=== PATIENT | female | born 1985 | race Two or more races ===

== ENCOUNTER 2016-09-18 10:31 | Emergency (ER) | payer MEDICAID ==
[2016-09-18] MEDS ORDERED: PREDNISONE 20 MG TABLET PO ONE (11:39)
[2016-09-18] MEDS ORDERED: IBUPROFEN 800 MG TABLET PO ONE (11:39)
[2016-09-18] MEDS ORDERED: CYCLOBENZAPRINE HCL 10 MG TABLET PO ONE (11:39)
--- NOTE | 2016-09-18 11:40 | ER Document Report ---
ED General Pain - General Chief Complaint: Low Back Pain Stated Complaint: BACK PAIN Time Seen by Provider: 09/18/16 11:11 Mode of Arrival: Ambulatory Information source: Patient Notes: Patient is a 30-year-old female who presents to the ER today for right lower back pain radiating down the right leg to the calf 1 day. Patient states that she has some numbness and tingling down the right leg to the calf as well. 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 TRAVEL OUTSIDE OF THE [place] IN LAST 30 DAYS: No - Related Data Allergies/Adverse Reactions: No Known Allergies Allergy (Verified 09/18/16 11:11) Past Medical History - General Information source: Patient - Social History Smoking Status: Never Smoker Frequency of alcohol use: Rare Drug Abuse: None Family History: Reviewed & Not Pertinent - Past Medical History Cardiac Medical History: Denies: Hx Coronary Artery Disease, Hx Heart Attack, Hx Hypertension Pulmonary Medical History: Denies: Hx Asthma, Hx Bronchitis, Hx COPD, Hx Pneumonia Neurological Medical History: Denies: Hx Cerebrovascular Accident, Hx Seizures Endocrine Medical History: Denies: Hx Hyperthyroidism, Hx Hypothyroidism Renal/ Medical History: Denies: Hx Peritoneal Dialysis Musculoskeltal Medical History: Denies Hx Arthritis Past Surgical History: Reports: Hx Section - X2 - Immunizations Hx Diphtheria, Pertussis, Tetanus Vaccination: Yes - 2012 Review of Systems - Review of Systems Constitutional: No symptoms reported EENT: No symptoms reported Cardiovascular: No symptoms reported Respiratory: No symptoms reported Gastrointestinal: No symptoms reported Genitourinary: No symptoms reported Female Genitourinary: No symptoms reported Musculoskeletal: See HPI Skin: No symptoms reported Hematologic/Lymphatic: No symptoms reported Neurological/Psychological: No symptoms reported Physical Exam - Vital signs Vitals: Temp Pulse Resp BP Pulse Ox 98.8 F 65 18 136/85 H 99 09/18/16 10:31 09/18/16 10:31 09/18/16 10:31 09/18/16 10:31 09/18/16 10:31 - Notes Notes: PHYSICAL EXAMINATION: GENERAL: appears uncomfortable, but in no acute distress. HEAD: Atraumatic, normocephalic. EYES: Pupils equal round and reactive to light, extraocular movements intact, sclera anicteric, conjunctiva are normal. ENT: ear canals without erythema or foreign body, TMs pearly wood with good bony landmarks, nares patent, oropharynx clear without exudates. Moist mucous membranes. NECK: Normal range of motion, supple without lymphadenopathy LUNGS: CTAB and equal. No wheezes rales or rhonchi. HEART: Regular rate and rhythm without murmurs ABDOMEN: Soft, no tenderness. No guarding, no rebound BACK: right sided SI joint tenderness, no vertebral tenderness, decreased ROM secondary to pain GI/: no CVA tenderness EXTREMITIES: no calf tenderness, Normal range of motion, no pitting edema. No cyanosis. NEUROLOGICAL: Cranial nerves grossly intact. Normal sensory/motor exams. PSYCH: Normal mood, normal affect. SKIN: Warm, Dry, normal turgor, no rashes or lesions noted Course - Vital Signs Vital signs: Temp Pulse Resp BP Pulse Ox 98.7 F 62 16 126/80 H 99 09/18/16 12:46 09/18/16 12:46 09/18/16 12:46 09/18/16 12:46 09/18/16 12:46 Discharge - Discharge Clinical Impression: Sciatica, right side Condition: Stable Disposition: HOME, SELF-CARE Additional Instructions: Follow-up with your primary care provider, take medicine as prescribed. Return with worsening symptoms. Prescriptions: Cyclobenzaprine HCl [Flexeril 10 mg Tablet] 10 mg PO TIDP PRN #15 tab PRN Reason: Ibuprofen [Motrin 800 mg Tablet] 800 mg PO Q8H PRN #30 tab PRN Reason: Prednisone 60 mg PO DAILY #15 tablet
[2016-09-18 12:23] LABS: APPEARANCE,URINE CLEAR; BILIRUBIN,URINE NEGATIVE (NEGATIVE); GLUCOSE, URINE NEGATIVE (NEGATIVE); KETONES,URINE NEGATIVE (NEGATIVE); LEUKOCYTE ESTERASE,URINE NEGATIVE (NEGATIVE); NITRITE,URINE NEGATIVE (NEGATIVE); PROTEIN,URINE NEGATIVE (NEGATIVE); URINE SPECIFIC GRAVITY 1.018; UROBILINOGEN,URINE NEGATIVE mg/dL (<2.0)
[2016-09-18 12:47] VITALS: BP 126/80
== END 2016-09-18 12:47 | disposition home or self-care (01) ==
LOC: ER 10:31
DX: M54.41 Lumbago with sciatica, right side (principal); M54.5 Low back pain; R10.31 Right lower quadrant pain
CPT/HCPCS: 99283; 81001; J3490 ×2; J7512

== ENCOUNTER → 2017-11-15 | Outpatient (CLI) | payer MEDICAID ==
--- NOTE | 2017-11-15 15:03 | RADIOLOGY REPORT (SQ) ---
EXAM DESCRIPTION: LUMBAR SPINE COMPLETE COMPLETED DATE/TIME: 11/15/2017 2:52 pm REASON FOR STUDY: LOW BACK PAIN M54.11 RADICULOPATHY, [id number] REGION COMPARISON: None. NUMBER OF VIEWS: Five views including obliques. TECHNIQUE: AP, lateral, oblique, and sacral radiographic images acquired of the lumbar spine. LIMITATIONS: None. FINDINGS: MINERALIZATION: Normal. SEGMENTATION: Normal. No transitional anatomy. ALIGNMENT: Normal. VERTEBRAE: Maintained height. No fracture or worrisome bone lesion. DISCS: Preserved height. No significant osteophytes or end plate irregularity. POSTERIOR ELEMENTS: Pedicles and facets are intact. No pars defect or posterior arch defects. HARDWARE: None in the spine. PARASPINAL SOFT TISSUES: Normal. PELVIS: Not in the field of view. Mild bilateral SI joint sclerosis and vacuum phenomenon OTHER: No other significant finding. IMPRESSION: Bilateral sacroiliac joint sclerosis and vacuum phenomenon TECHNICAL DOCUMENTATION: JOB ID: [id number] [employer]- All Rights Reserved Reading location - IP/workstation name: [email or web address]
== END ==
LOC: OD 14:27
PROVIDERS: ATTEND Family Medicine
DX: M54.41 Lumbago with sciatica, right side (principal)
CPT/HCPCS: 72110

== ENCOUNTER → 2018-09-21 | Outpatient (CLI) | payer SELFPAY ==
--- NOTE | 2018-09-21 13:50 | RADIOLOGY REPORT (SQ) ---
EXAM DESCRIPTION: U/S [id number] TRNABD 1GES W/ODOP COMPLETED DATE/TIME: 09/21/2018 1:25 pm REASON FOR STUDY: Z34.81 ENCOUNTER FOR SUPRVSN OF NORMAL , FIRST TRIMESTER Z34.81 ENCOUNTE R FOR SUPRVSN OF NORMAL , FIRST TRIM COMPARISON: None. TECHNIQUE: Transabdominal static and realtime grayscale images acquired of the pelvis. Additional se lected spectral and color Doppler images recorded. All images stored on PACs. bHCG: Not applicable. CLINICAL DATES: EFREN: 05/02/2019 EGA semi: 8 weeks 1 day LIMITATIONS: None. FINDINGS: FETUS: Single Living intrauterine . ULTRASOUND EGA: 12 weeks 5 days ULTRASOUND EFREN: 03/31/2019 EFW: Not applicable less than 20 weeks. CRL: 6.2 cm FHR: 157 beats per minute. SURVEY: No visualized anomalies. AMNIOTIC FLUID: Adequate amount. PLACENTA: Posterior placenta. SUBCHORIONIC BLEED: No. SIZE OF BLEED: Not applicable. UTERUS: No masses. No anomalies. CERVICAL LENGTH: Not obtained. Closed. RIGHT ADNEXA: Not visualized. LEFT ADNEXA: Not visualized. FREE FLUID: None. OTHER: No other significant finding. IMPRESSION: LIVING INTRAUTERINE . EGA: 12 weeks 5 days Trimester of : First trimester - 0 to 13 weeks. TECHNICAL DOCUMENTATION: JOB ID: [id number] [employer]- All Rights Reserved rev Reading location - IP/workstation name: [email or web address]
== END ==
LOC: RAD 12:46
PROVIDERS: ATTEND Midwife
DX: Z34.81 Encounter for supervision of other normal pregnancy, first trimester (principal)
CPT/HCPCS: 76801

== ENCOUNTER 2018-10-17 15:05 | Emergency (ER) | payer MEDICAID ==
[2018-10-17] MEDS ORDERED: ACETAMINOPHEN 325 MG TABLET PO ONE (15:32)
--- NOTE | 2018-10-17 15:32 | ER Document Report ---
ED Medical Screen (RME) - General Chief Complaint: Fall Stated Complaint: FALL/ABDOMINAL CRAMPING Time Seen by Provider: 10/17/18 15:29 Primary Care Provider: TONIO MANCIA CNM [Primary Care Provider] - Follow up as needed Mode of Arrival: Ambulatory Information source: Patient Notes: 32-year-old female presented to ED for lower abdominal pain and cramping after she fell around 11:00 this morning. She is 17 weeks . 4 para 3. She states she goes to the health department at this time. She states her last OB ultrasound was September 16. She states she is due in March 292019. She is alert oriented respirations regular and unlabored speaking in full sentences. Patient does deny vaginal bleeding at this time. TRAVEL OUTSIDE OF THE [place] IN LAST 30 DAYS: No - Related Data Allergies/Adverse Reactions: No Known Allergies Allergy (Verified 10/17/18 15:07) Past Medical History - Social History Frequency of alcohol use: None Drug Abuse: None - Past Medical History Cardiac Medical History: Denies: Hx Coronary Artery Disease, Hx Heart Attack, Hx Hypertension Pulmonary Medical History: Denies: Hx Asthma, Hx Bronchitis, Hx COPD, Hx Pneumonia Neurological Medical History: Denies: Hx Cerebrovascular Accident, Hx Seizures Endocrine Medical History: Denies: Hx Hyperthyroidism, Hx Hypothyroidism Renal/ Medical History: Denies: Hx Peritoneal Dialysis Musculoskeltal Medical History: Denies Hx Arthritis Past Surgical History: Reports: Hx Section - X2 - Immunizations Hx Diphtheria, Pertussis, Tetanus Vaccination: Yes - 2012 Physical Exam - Vital signs Vitals: Temp Pulse Resp BP Pulse Ox 98.7 F 68 20 122/65 97 10/17/18 15:10 10/17/18 15:10 10/17/18 15:10 10/17/18 15:10 10/17/18 15:10 Course - Vital Signs Vital signs: Temp Pulse Resp BP Pulse Ox 98.7 F 68 20 122/65 97 10/17/18 15:10 10/17/18 15:10 10/17/18 15:10 10/17/18 15:10 10/17/18 15:10 Doctor's Discharge - Discharge Referrals: TONIO MANCIA CNM [Primary Care Provider] - Follow up as needed
[2018-10-17 16:09] LABS: ABSOLUTE EOSINOPHILS # (AUTO) 0.1 10^3/uL (0.0-0.6); ABSOLUTE LYMPHOCYTES (AUTO) 1.9 10^3/uL (0.5-4.7); ABSOLUTE MONOCYTES (AUTO) 0.6 10^3/uL (0.1-1.4); ABSOLUTE NEUT (AUTO) 5.7 10^3/uL (1.7-8.2); BASOPHILS % (AUTO) 0.4 % (0-2); EOSINOPHILS % (AUTO) 1.3 % (0-6); HEMATOCRIT 36.6 % (36.0-47.0); HEMOGLOBIN 12.8 g/dL (12.0-15.5); LYMPHOCYTES % (AUTO) 22.6 % (13-45); MEAN CORPUSCULAR HEMOGLOBIN 31.6 pg (27.0-33.4); MEAN CORPUSCULAR HGB CONC 34.9 g/dL (32.0-36.0); MEAN CORPUSCULAR VOLUME 91 fl (80-97); MONOCYTES % (AUTO) 7.2 % (3-13); PLATELET COUNT 207 10^3/uL (150-450); RED BLOOD COUNT 4.04 10^6/uL (3.72-5.28); RED CELL DISTRIBUTION WIDTH 14.2 % (11.5-14.0); SEGMENTED NEUTROPHILS % (AUTO) 68.5 % (42-78); TOTAL CELLS COUNTED % (AUTO) 100 %; WHITE BLOOD COUNT 8.4 10^3/uL (4.0-10.5)
[2018-10-17 16:21] LABS: APPEARANCE,URINE SLIGHTLY-CLOUDY; BILIRUBIN,URINE NEGATIVE (NEGATIVE); COLOR,URINE YELLOW; GLUCOSE, URINE NEGATIVE (NEGATIVE); KETONES,URINE TRACE mg/dL (NEGATIVE); LEUKOCYTE ESTERASE,URINE NEGATIVE (NEGATIVE); NITRITE,URINE POSITIVE (NEGATIVE); PROTEIN,URINE NEGATIVE (NEGATIVE); URINE SPECIFIC GRAVITY 1.014; UROBILINOGEN,URINE NEGATIVE mg/dL (<2.0)
[2018-10-17 16:31] LABS: ALBUMIN 4.1 g/dL (3.5-5.0); ALKALINE PHOSPHATASE 79 U/L (38-126); ANION GAP 12 (5-19); ASPARTATE AMINO TRANSFERASE 19 U/L (14-36); BILIRUBIN,DIRECT 0.1 mg/dL (0.0-0.4); BILIRUBIN,TOTAL 0.5 mg/dL (0.2-1.3); BLOOD UREA NITROGEN 3 mg/dL (7-20); CALCIUM 9.2 mg/dL (8.4-10.2); CARBON DIOXIDE 24 mmol/L (22-30); CHLORIDE 100 mmol/L (98-107); GLUCOSE 92 mg/dL (75-110); POTASSIUM 3.5 mmol/L (3.6-5.0); TOTAL PROTEIN 7.2 g/dL (6.3-8.2)
--- NOTE | 2018-10-17 16:56 | RADIOLOGY REPORT (SQ) ---
EXAM DESCRIPTION: U/S OB 14+ TRNABD 1GES W/O DOP COMPLETED DATE/TIME: 10/17/2018 4:24 pm REASON FOR STUDY: fall pelvic/abdominal cramping COMPARISON: None. TECHNIQUE: Static and Dynamic grayscale imaging performed of gravid uterus using transabdominal appr oac. Additional selected color Doppler and spectral images recorded. All stored on PACS. LIMITATIONS: None. FINDINGS: FETUSES SEEN:1 EGA: 16 weeks 3 days Calculated using BPD,FL,HC,AC documented on images. No discrepancy with clinica l dates. EFREN: 03/31/2019 EFW: 150+/- 22 grams PERCENTILE: Not applicable. LVP: 4.2 cm. PLACENTA: Posterior grade 1. PRESENTATION: Cephalic. ANATOMY: HEART RATE: 157 beats per minute. FOUR CHAMBER HEART: Not confirmed. THREE VESSEL CORD: Not confirmed. CORD INSERTION: Not seen. KIDNEYS AND BLADDER: Kidneys not seen. Bladder is normal. STOMACH: Visualized. Appears normal. SPINE: Normal as visualized. BRAIN AND LATERAL VENTRICLES: Not well seen. OTHER: No other significant finding. MATERNAL ADNEXA: Maternal ovaries not visualized. CERVICAL LENGTH: 2.3 cm. Closed. OTHER: No other significant finding. IMPRESSION: LIVING INTRAUTERINE . ESTIMATED GESTATIONAL AGE 16 weeks 3 days. No visualized anomalies. Very limited anatomical evaluation. Trimester of : Second trimester - 13 weeks 1 day to 27 weeks 6 days. TECHNICAL DOCUMENTATION: JOB ID: [id number] [email or web address]- All Rights Reserved Reading location - IP/workstation name: [email or web address]
--- NOTE | 2018-10-17 19:09 | ER Document Report ---
ED Fall - General Chief Complaint: Fall Stated Complaint: FALL/ABDOMINAL CRAMPING Time Seen by Provider: 10/17/18 15:29 Primary Care Provider: TONIO MANCIA CNM [NO LOCAL MD] - Follow up as needed Mode of Arrival: Ambulatory Information source: Patient Notes: Patient is a 32-year-old female presents to the emergency department with a chief complaint of fall. Patient states around 11 AM she was stepping up to get into an elevated truck when she did the handle she grabbed onto broke. Patient said she fell onto the concrete onto her buttocks. Patient reports she is 17 weeks . Patient states she has not had any vaginal bleeding or discharge. Patient does report pelvic intermittent cramping that did develop after the fall. Patient reports she is currently on oral antibiotic for a urinary tract infection that was given by the health department. Patient states she has taken Tylenol for her discomfort. TRAVEL OUTSIDE OF THE [place] IN LAST 30 DAYS: No - Related data Allergies/Adverse Reactions: No Known Allergies Allergy (Verified 10/17/18 15:07) Past Medical History - General Information source: Patient - Social History Smoking Status: Never Smoker Frequency of alcohol use: None Drug Abuse: None Lives with: Spouse/Significant other Family History: Reviewed & Not Pertinent Patient has suicidal ideation: No Patient has homicidal ideation: No - Past Medical History Cardiac Medical History: Reports: None Denies: Hx Coronary Artery Disease, Hx Heart Attack, Hx Hypertension Pulmonary Medical History: Reports: None Denies: Hx Asthma, Hx Bronchitis, Hx COPD, Hx Pneumonia EENT Medical History: Reports: None Neurological Medical History: Reports: None. Denies: Hx Cerebrovascular Accident, Hx Seizures Endocrine Medical History: Reports: None. Denies: Hx Hyperthyroidism, Hx H ypothyroidism Renal/ Medical History: Reports: None. Denies: Hx Peritoneal Dialysis Malignancy Medical History: Reports: None GI Medical History: Reports: None Musculoskeletal Medical History: Reports None, Denies Hx Arthritis Skin Medical History: Reports None Psychiatric Medical History: Reports: None Traumatic Medical History: Reports: None Infectious Medical History: Reports: None Past Surgical History: Reports: Hx Section - X2 - Immunizations Hx Diphtheria, Pertussis, Tetanus Vaccination: Yes - 2013 Review of Systems - Review of Systems Constitutional: No symptoms reported EENT: No symptoms reported Cardiovascular: No symptoms reported Respiratory: No symptoms reported Gastrointestinal: See HPI Genitourinary: No symptoms reported Female Genitourinary: No symptoms reported Musculoskeletal: See HPI Skin: No symptoms reported Hematologic/Lymphatic: No symptoms reported Neurological/Psychological: No symptoms reported Physical Exam - Vital signs Vitals: Temp Pulse Resp BP Pulse Ox 98.7 F 68 20 122/65 97 10/17/18 15:10 10/17/18 15:10 10/17/18 15:10 10/17/18 15:10 10/17/18 15:10 Interpretation: Normal - Notes Notes: GENERAL: Well-appearing, well-nourished and in no acute distress. HEAD: Atraumatic, normocephalic. EYES: Pupils equal round and reactive to light, extraocular movements intact, sclera anicteric, conjunctiva are normal. ENT: Nares patent, oropharynx clear without exudates. Moist mucous membranes. NECK: Normal range of motion, supple without lymphadenopathy or JVD. LUNGS: Breath sounds clear to auscultation bilaterally and equal. No wheezes rales or rhonchi. HEART: Regular rate and rhythm without murmurs, rubs or gallops. ABDOMEN: Soft, nontender, normoactive bowel sounds. No guarding, no rebound. No masses appreciated. BACK: No cervical, thoracic, lumbar midline tenderness. No saddle anesthesia, normal distal neurovascular exam. No ecchymosis noted to the buttocks. No tenderness to the coccyx. GENITOURINARY: Deferred. EXTREMITIES: Normal range of motion, no pitting or edema. No clubbing or cyano sis. NEUROLOGICAL: Cranial nerves II through XII grossly intact. Normal speech, normal gait. PSYCH: Normal mood, normal affect. SKIN: Warm, Dry, normal turgor, no rashes or lesions noted. Course - Re-evaluation Re-evalutation: 10/17/18 19:20 Patient's lab work was unremarkable. Patient's ultrasound was normal. Patient continues to deny vaginal bleeding or discharge since the incident at 11 AM. Patient does report intermittent lower pelvic cramping. Patient did take Tylenol for this. I did order a urine culture. Patient states she is currently being treated with oral antibiotics for a urinary tract infection. Patient placed on strict return precautions. - Vital Signs Vital signs: Temp Pulse Resp BP Pulse Ox 98.7 F 68 20 122/65 97 10/17/18 15:10 10/17/18 15:10 10/17/18 15:10 10/17/18 15:10 10/17/18 15:10 - Laboratory Result Diagrams: 10/17/18 15:53 10/17/18 15:53 Laboratory results interpreted by me: 10/17/18 10/17/18 10/17/18 15:53 15:53 15:53 RDW 14.2 H Sodium 135.5 L Potassium 3.5 L BUN 3 L Creatinine 0.34 L Urine Ketones TRACE H Urine Nitrite POSITIVE H - Diagnostic Test Radiology reviewed: Reports reviewed Radiology results interpreted by me: 10/17/18 19:06 Obstetrics Ultrasound 10/17/18 15:32 IMPRESSION: LIVING INTRAUTERINE . ESTIMATED GESTATIONAL AGE 16 weeks 3 days. No visualized anomalies. Very limited anatomical evaluation. Trimester of : Second trimester - 13 weeks 1 day to 27 weeks 6 days. Discharge - Discharge Clinical Impression: Buttock pain, Pelvic pain, Second trimester Fall Qualifiers: Encounter type: initial encounter Qualified Code(s): W19.XXXA - Unspecified fall, initial encounter Urinary tract infection Qualifiers: Urinary tract infection type: site unspecified Hematuria presence: without hematuria Qualified Code(s): N39.0 - Urinary tract infection, site not specified Condition: Stable Disposition: HOME, SELF-CARE Additional Instructions: Today you were seen in the emergency department after a fall. We did obtain an ultrasound and your baby is measuring 16 weeks and 3 days. The ultrasound did not show any acute abnormality. He also reported having pelvic pain. Urinalysis did show a urinary tract infection. Please continue take the oral antibiotics at the health department prescribed and follow-up with him on the as previously scheduled. Please return to the emergency department if you develop severe abdominal pain, vaginal bleeding, vaginal discharge or any other concerning signs or symptoms. Do expect to be sore over the next few days. Take Tylenol as needed for pain. He may also use cool compresses over the sites that are bothering you such as the buttocks. Urinary Tract Infection Your evaluation indicates that you have a urinary tract infection. This is due to germs growing in the bladder. This is a common problem. This infection usually responds quickly to antibiotics. Your antibiotic should be taken exactly as prescribed. Drink plenty of fluids -- three to four quarts a day. Occasionally, a bladder anesthetic will be prescribed to help stop the feeling of urgency until the antibiotic has a chance to clear the infection. This may cause your urine to be dark orange. Certain urine infections require a culture. If the doctor obtained a culture, the results will be back in two days. You should call to see if a change in treatment is needed. A repeat urinalysis after you finish treatment is often recommended. The physician will let you know if further testing is required. Call the doctor if you develop fever, chills, flank pain, inability to urinate, or blood in the urine. Forms: Return to Work Referrals: TONIO MANCIA CNM [NO LOCAL MD] - Follow up as needed
[2018-10-17 19:30] VITALS: BP 121/61
== END 2018-10-17 19:40 | disposition home or self-care (01) ==
LOC: ER 15:05
DX: O23.42 Unspecified infection of urinary tract in pregnancy, second trimester (principal); R10.30 Lower abdominal pain, unspecified; R10.2 Pelvic and perineal pain; Z3A.16 16 weeks gestation of pregnancy
CPT/HCPCS: 36415; 87086; 85025; 87088; 80053; 81001; 87186; 76805; J3490; 99284

== ENCOUNTER 2019-03-03 15:57 | Outpatient (CLI) | payer MEDICAID ==
[2019-03-03 17:11] LABS: APPEARANCE,URINE CLOUDY; BILIRUBIN,URINE NEGATIVE (NEGATIVE); COLOR,URINE YELLOW; GLUCOSE, URINE NEGATIVE (NEGATIVE); KETONES,URINE NEGATIVE (NEGATIVE); LEUKOCYTE ESTERASE,URINE LARGE (NEGATIVE); NITRITE,URINE NEGATIVE (NEGATIVE); PROTEIN,URINE 100 mg/dL (NEGATIVE); URINE SPECIFIC GRAVITY 1.018; UROBILINOGEN,URINE NEGATIVE mg/dL (<2.0)
[2019-03-03 17:16] LABS: URINE AMPHETAMINES SCREEN NEGATIVE; URINE BARBITURATES SCREEN NEGATIVE; URINE BENZODIAZEPINES SCREEN NEGATIVE; URINE COCAINE SCREEN NEGATIVE; URINE MARIJUANA (THC) SCREEN NEGATIVE; URINE METHADONE SCREEN NEGATIVE; URINE PHENCYCLIDINE SCREEN NEGATIVE
== END 2019-03-03 17:40 | disposition home or self-care (01) ==
LOC: LC 15:57
PROVIDERS: ATTEND Student in an Organized Health Care Education/Training Program
PROC: 4A1HXCZ Monitoring of Products of Conception, Cardiac Rate, External Approach (ICD-10-PCS; principal; 2019-03-03)
DX: O47.03 False labor before 37 completed weeks of gestation, third trimester (principal); Z3A.36 36 weeks gestation of pregnancy
CPT/HCPCS: 80307; 81001; 84112

== ENCOUNTER 2019-03-24 05:05 | Inpatient (IN) | payer MEDICAID ==
[2019-03-22 10:52] LABS: ABSOLUTE LYMPHOCYTES (AUTO) 1.9 10^3/uL (0.5-4.7); ABSOLUTE MONOCYTES (AUTO) 0.5 10^3/uL (0.1-1.4); ABSOLUTE NEUT (AUTO) 3.9 10^3/uL (1.7-8.2); BASOPHILS % (AUTO) 0.4 % (0-2); EOSINOPHILS % (AUTO) 0.5 % (0-6); HEMOGLOBIN 13.4 g/dL (12.0-15.5); LYMPHOCYTES % (AUTO) 30.6 % (13-45); MEAN CORPUSCULAR HEMOGLOBIN 31.3 pg (27.0-33.4); MEAN CORPUSCULAR HGB CONC 35.3 g/dL (32.0-36.0); MEAN CORPUSCULAR VOLUME 89 fl (80-97); MONOCYTES % (AUTO) 7.4 % (3-13); PLATELET COUNT 196 10^3/uL (150-450); RED BLOOD COUNT 4.29 10^6/uL (3.72-5.28); RED CELL DISTRIBUTION WIDTH 13.9 % (11.5-14.0); SEGMENTED NEUTROPHILS % (AUTO) 61.1 % (42-78); TOTAL CELLS COUNTED % (AUTO) 100 %; WHITE BLOOD COUNT 6.4 10^3/uL (4.0-10.5)
[2019-03-22 12:18] LABS: APPEARANCE,URINE SLIGHTLY-CLOUDY; BILIRUBIN,URINE NEGATIVE (NEGATIVE); COLOR,URINE YELLOW; GLUCOSE, URINE NEGATIVE (NEGATIVE); KETONES,URINE 20 mg/dL (NEGATIVE); LEUKOCYTE ESTERASE,URINE NEGATIVE (NEGATIVE); NITRITE,URINE NEGATIVE (NEGATIVE); PROTEIN,URINE NEGATIVE (NEGATIVE); URINE SPECIFIC GRAVITY 1.006; UROBILINOGEN,URINE NEGATIVE mg/dL (<2.0)
[2019-03-22 12:40] LABS: URINE AMPHETAMINES SCREEN NEGATIVE; URINE BARBITURATES SCREEN NEGATIVE; URINE BENZODIAZEPINES SCREEN NEGATIVE; URINE COCAINE SCREEN NEGATIVE; URINE MARIJUANA (THC) SCREEN NEGATIVE; URINE METHADONE SCREEN NEGATIVE; URINE PHENCYCLIDINE SCREEN NEGATIVE
[2019-03-24] MEDS ORDERED: CEFAZOLIN SODIUM 2 GM in DEXTROSE 5%-WATER 100 ML IV PRN (07:20)
[2019-03-24] MEDS ORDERED: LACTATED RINGERS 1000 ML IV PRN (07:21)
[2019-03-24] MEDS ORDERED: RINGERS SOLUTION,LACTATED 1,500 ML IV PRN (07:21)
[2019-03-24] MEDS ORDERED: LIDOCAINE 0.5% INJ-PF (5 MG/ML) 50 ML SDV SUBCUT PRN (07:21)
[2019-03-24] MEDS ORDERED: FENTANYL CITRATE INJ/PF 100 MCG/2 ML AMPUL ONE (07:24)
[2019-03-24] MEDS ORDERED: OXYTOCIN 10 UNIT/ML VIAL ONE (07:24)
[2019-03-24] MEDS ORDERED: KETOROLAC TROMETHAMINE INJ/PF 30 MG/1 ML SDV ONE (07:24)
[2019-03-24] MEDS ORDERED: MIDAZOLAM 2 MG/2 ML INJ ONE (07:25)
[2019-03-24] MEDS ORDERED: EPHEDRINE SULFATE INJ 50 MG/1 ML AMPULE ONE (07:25)
[2019-03-24] MEDS ORDERED: ACETAMINOPHEN 1,000 MG/100 ML RTUPB IV ONE (07:25)
[2019-03-24] MEDS ORDERED: OXYTOCIN/NORMAL SALINE 20 UNIT/1,000 ML RTUINJ ONE (07:25)
[2019-03-24] MEDS ORDERED: ONDANSETRON HCL INJ/PF 4 MG/2 ML SDV ONE (07:25)
[2019-03-24] MEDS ORDERED: LIDOCAINE 2% INJ-PF (20 MG/ML) 10 ML AMPUL ONE (07:26)
[2019-03-24] MEDS ORDERED: PHENYLEPHRINE HCL INJ/PF 10 MG/1 ML SDV ONE (07:26)
[2019-03-24] MEDS ORDERED: DEXAMETHASONE SOD PHOSPHATE INJ 4 MG/1 ML VIAL ONE (07:26)
[2019-03-24] MEDS ORDERED: CEFAZOLIN 1 GM/D5W RTU 2 GM/100 ML RTUPB IV ONE (07:35)
[2019-03-24] MEDS ORDERED: MEPERIDINE HCL/PF INJ 25 MG/1 ML DISP.SYRIN IV PRN (08:45)
[2019-03-24] MEDS ORDERED: OXYCODONE-ACETAMINOPHEN 5-325 MG TABLET PO PRN ×3 (08:45→08:49)
[2019-03-24] MEDS ORDERED: PROMETHAZINE HCL INJ 25 MG/1 ML VIAL IV PRN ×3 (08:45→08:49)
[2019-03-24] MEDS ORDERED: FENTANYL CITRATE INJ/PF 100 MCG/2 ML AMPUL IV PRN ×3 (08:45)
[2019-03-24] MEDS ORDERED: ONDANSETRON HCL INJ/PF 4 MG/2 ML SDV IV PRN (08:45)
[2019-03-24] MEDS ORDERED: MORPHINE SULFATE 10 MG/ML INJ IV PRN (08:45)
[2019-03-24] MEDS ORDERED: DIPHENHYDRAMINE HCL 50 MG/ML VIAL IV PRN (08:45)
[2019-03-24] MEDS ORDERED: RINGERS SOLUTION,LACTATED 1,000 ML IV PRN (08:49)
[2019-03-24] MEDS ORDERED: ACETAMINOPHEN 1,000 MG/100 ML RTUPB IV PRN (08:49)
[2019-03-24] MEDS ORDERED: MEASLES,MUMPS&RUBELLA VACC/PF 0.5 ML VIAL SUBCUT PRN (08:49)
[2019-03-24] MEDS ORDERED: SIMETHICONE 80 MG TAB.CHEW PO PRN (08:49)
[2019-03-24] MEDS ORDERED: DIPH/PERTUSS(ACELL)/TETANUS VAC/PF 0.5 ML SYR (>=10YO) IM PRN (08:49)
[2019-03-24] MEDS ORDERED: OXYTOCIN/NORMAL SALINE 20 UNIT/1,000 ML RTUINJ IV PRN (08:49)
[2019-03-24] MEDS ORDERED: ACETAMINOPHEN 325 MG TABLET PO PRN (08:49)
--- NOTE | 2019-03-24 08:54 | Operative Report ---
Operative Report DATE OF SURGERY: 03/24/19 PREOPERATIVE DIAGNOSIS: IUP @39 weeks, previous , undesired fertility POSTOPERATIVE DIAGNOSIS: Same OPERATION: Repeat low transverse hysterotomy section with [place] bilateral tubal ligation SURGEON: JESUSITA BLANCHARD 1ST APPEALS OFFICER: TIMMY LIM ANESTHESIA: Spinal TISSUE REMOVED OR ALTERED: Bilateral fallopian tube segments COMPLICATIONS: None ESTIMATED BLOOD LOSS: 750 cc INTRAOPERATIVE FINDINGS: Male cephalic presentation Apgars 9 and 9 PROCEDURE: The patient was taken to the operating room, prepared and draped in anormal sterile fashion in a supine position with a leftward tilt. A transverse skin incision was made with a scalpel and carried through tothe underlying layer of fascia with the same scalpel. The fascia was excised in the midline and extended laterally with Kian. The fascia was then dissected from the rectus muscle sharply with Kian and the rectus muscle was divided and the peritoneal cavity was entered sharply with the same Metzenbaum. With good visualization of the b ladder and the uterus the bladder blade was inserted. The hysterotomy was nicked with a scalpel and extended laterally with surgeon finger fraction. The infant was thendelivered atraumatically. The nose and mouth were suctioned with a suction bulb, the cord was clamped and cut and handed off to awaiting pediatricians. Cord blood was collected. The placenta was removed manually. The uterus was exteriorized and cleared of clots and debris. The hysterotomy was closed with 0 Monocryl in a running, locked fashion. A second layer of the same suture was used to imbricate to ensure hemostasis. Attention was then turned to the fallopian tubes where the right fallopian tube was grasped with a Shelton, the mesosalpinx was divided with a Bovie. a 3-1/2 cm segment of fallopian tube was tied off with 2 pieces of 2-0 chromic.this segment was ligated using Metzenbaums and the pedicles were made hemostatic with the Bovie. This procedure was repeated on the left fallopian tube without difficulty. The uterus was returned to the abdomen and peritoneal cavity was cleared of clots and debris. The pedicles were inspected and they were still hemostatic. The rectus muscle and peritoneum were repaired with mattress stitch of 2-0 Chromic. The fascia was closed with 0-Vicryl. The subcutaneous layer was closed with plain catgut and the skin was closed with 4-0 Vicryl. The patient tolerated the procedure well. Sponge, lap, and needle counts correct x2 and the patient was taken to recovery in stable condition.
[2019-03-24] MEDS: FENTANYL CITRATE INJ/PF 100 MCG/2 ML AMPUL ONE ×2 (09:24→09:50)
[2019-03-24] MEDS: MORPHINE SULFATE 10 MG/ML INJ ONE ×2 (10:19→10:29)
[2019-03-24] MEDS: MORPHINE SULFATE 10 MG/ML INJ IV PRN ×2 (12:42→19:36)
[2019-03-24] MEDS ORDERED: KETOROLAC TROMETHAMINE INJ/PF 30 MG/1 ML SDV IV SCH (14:00)
[2019-03-24] MEDS: IBUPROFEN 800 MG TABLET PO SCH ×2 (15:40→18:19)
[2019-03-24] MEDS: DOCUSATE SODIUM 100 MG CAPSULE PO SCH ×2 (15:40→18:19)
[2019-03-24] MEDS: PRENATAL VITAMIN W DHA CAPSULE PO SCH (15:40)
[2019-03-24] MEDS: OXYCODONE-ACETAMINOPHEN 5-325 MG TABLET PO PRN ×2 (15:45→23:17)
[2019-03-25] MEDS: KETOROLAC TROMETHAMINE INJ/PF 30 MG/1 ML SDV IV SCH ×2 (02:31→09:50)
[2019-03-25] MEDS: MORPHINE SULFATE 10 MG/ML INJ IV PRN (02:41)
[2019-03-25] MEDS: OXYCODONE-ACETAMINOPHEN 5-325 MG TABLET PO PRN ×3 (07:10→21:16)
[2019-03-25 07:46] LABS: HEMATOCRIT 26.2 % (36.0-47.0); MEAN CORPUSCULAR HEMOGLOBIN 31.5 pg (27.0-33.4); MEAN CORPUSCULAR HGB CONC 35.2 g/dL (32.0-36.0); MEAN CORPUSCULAR VOLUME 89 fl (80-97); PLATELET COUNT 179 10^3/uL (150-450); RED BLOOD COUNT 2.93 10^6/uL (3.72-5.28); RED CELL DISTRIBUTION WIDTH 13.9 % (11.5-14.0); WHITE BLOOD COUNT 9.3 10^3/uL (4.0-10.5)
[2019-03-25 07:50] LABS: HEMOGLOBIN 9.2 g/dL (12.0-15.5)
[2019-03-25] MEDS: DOCUSATE SODIUM 100 MG CAPSULE PO SCH ×2 (09:50→17:51)
[2019-03-25] MEDS: PRENATAL VITAMIN W DHA CAPSULE PO SCH (09:50)
--- NOTE | 2019-03-25 09:55 | PDOC PROGRESS REPORT ---
Subjective-OB Progress Note for:: 03/25/19 - POD #1, doing well, s/p Rpt w/ BTL. UOB, voiding Physical Exam (OB) Vital Signs: Temp Pulse Resp BP Pulse Ox 97.9 F 65 17 111/51 L 99 03/25/19 08:00 03/25/19 08:00 03/25/19 08:00 03/25/19 08:00 03/25/19 08:00 Intake & Output 03/24/19 03/25/19 03/26/19 06:59 06:59 06:59 Intake Total 1500 Output Total 2610 175 Balance -1110 -175 Weight 83.5 kg - General General Appearance: Appears well, Alert - Dressing Removed: No Incision: Dressing Closure Type: opsite - Lochia Lochia Amount: Moderate 25-50 ml Lochia Color: Rubra/Red - Abdomen Description: Tender, Soft Hernia Present: Yes Fundal Description: Firm, Midline Fundal Height: u/u - u/2 - Respiratory Respiratory Status: No respiratory distress Breath sounds: Clear - Cardiovascular Rhythm: Regular Heart Sounds: Normal auscultation - Abdominal Distension: No distension Tenderness: Nontender Abdominal Notes: +BS - Genitourinary Genitourinary Note: voiding - Extremities Upper extremity: Normal inspection Lower extremities: Edema - Neurological Cognition: Normal Orientation: AAOx4 - Psychological Associated symptoms: Normal affect, Normal mood - Skin Skin Temperature: Warm Skin Moisture: Dry Objective-Diagnostic Laboratory: 03/25/19 07:02 03/25/19 07:02 WBC 9.3 RBC 2.93 L Hgb 9.2 L D Hct 26.2 L MCV 89 MCH 31.5 MCHC 35.2 RDW 13.9 Plt Count 179 Assessment and Plan(PN) - Assessment and Plan (1) GDM (gestational diabetes mellitus) Qualifiers: Gestational diabetes mellitus control: diet-controlled Trimester: third trimester Qualified Code(s): O24.410 - Gestational diabetes mellitus in , diet controlled Is this a current diagnosis for this admission?: Yes (2) hemorrhage Qualifiers: hemorrhage type: other immediate Qualified Code(s): O72.1 - Other immediate hemorrhage Is this a current diagnosis for this admission?: Yes (4) Uterine atony, , current hospitalization Is this a current diagnosis for this admission?: Yes Plan:: Routine Post Op and PP orders, ambulation encouraged - Time Spent with Patient Time with patient: Less than 15 minutes Medications reviewed and adjusted accordingly: Yes - Disposition Anticipated Discharge: Home Within: within 48 hours
[2019-03-25] MEDS: FERROUS SULFATE 325 MG TABLET PO SCH (14:30)
[2019-03-25] MEDS: IBUPROFEN 800 MG TABLET PO SCH (17:52)
[2019-03-25] MEDS ORDERED: RINGERS SOLUTION,LACTATED 500 ML IV ONE (18:00)
[2019-03-25 18:12] LABS: MEAN CORPUSCULAR HEMOGLOBIN 31.6 pg (27.0-33.4); MEAN CORPUSCULAR HGB CONC 35.2 g/dL (32.0-36.0); MEAN CORPUSCULAR VOLUME 90 fl (80-97); PLATELET COUNT 160 10^3/uL (150-450); RED BLOOD COUNT 2.35 10^6/uL (3.72-5.28); WHITE BLOOD COUNT 5.9 10^3/uL (4.0-10.5)
[2019-03-25 18:14] LABS: HEMOGLOBIN 7.4 g/dL (12.0-15.5); INTERNATIONAL RATION (INR) 0.94; PROTHROMBIN TIME 12.5 SEC (11.4-15.4)
[2019-03-25 18:15] LABS: PARTIAL THROMBOPLASTIN TIME 30.5 SEC (23.5-35.8)
[2019-03-25 18:27] LABS: ALBUMIN 2.5 g/dL (3.5-5.0); ALKALINE PHOSPHATASE 120 U/L (38-126); ANION GAP 8 (5-19); ASPARTATE AMINO TRANSFERASE 21 U/L (14-36); BILIRUBIN,DIRECT 0.2 mg/dL (0.0-0.4); BILIRUBIN,TOTAL 0.2 mg/dL (0.2-1.3); BLOOD UREA NITROGEN 9 mg/dL (7-20); CALCIUM 8.2 mg/dL (8.4-10.2); CARBON DIOXIDE 22 mmol/L (22-30); CHLORIDE 105 mmol/L (98-107); GLUCOSE 115 mg/dL (75-110); POTASSIUM 3.7 mmol/L (3.6-5.0); TOTAL PROTEIN 5.4 g/dL (6.3-8.2)
[2019-03-26] MEDS: IBUPROFEN 800 MG TABLET PO SCH ×3 (05:02→11:48)
[2019-03-26 08:05] LABS: ABSOLUTE EOSINOPHILS # (AUTO) 0.1 10^3/uL (0.0-0.6); ABSOLUTE LYMPHOCYTES (AUTO) 1.6 10^3/uL (0.5-4.7); ABSOLUTE MONOCYTES (AUTO) 0.5 10^3/uL (0.1-1.4); ABSOLUTE NEUT (AUTO) 4.2 10^3/uL (1.7-8.2); BASOPHILS % (AUTO) 0.2 % (0-2); EOSINOPHILS % (AUTO) 1.8 % (0-6); HEMATOCRIT 26.7 % (36.0-47.0); HEMOGLOBIN 9.4 g/dL (12.0-15.5); LYMPHOCYTES % (AUTO) 25.6 % (13-45); MEAN CORPUSCULAR HEMOGLOBIN 30.7 pg (27.0-33.4); MEAN CORPUSCULAR HGB CONC 35.2 g/dL (32.0-36.0); MEAN CORPUSCULAR VOLUME 87 fl (80-97); MONOCYTES % (AUTO) 7.1 % (3-13); PLATELET COUNT 147 10^3/uL (150-450); RED BLOOD COUNT 3.07 10^6/uL (3.72-5.28); RED CELL DISTRIBUTION WIDTH 15.3 % (11.5-14.0); SEGMENTED NEUTROPHILS % (AUTO) 65.3 % (42-78); TOTAL CELLS COUNTED % (AUTO) 100 %; WHITE BLOOD COUNT 6.4 10^3/uL (4.0-10.5)
[2019-03-26] MEDS: PRENATAL VITAMIN W DHA CAPSULE PO SCH (09:21)
[2019-03-26] MEDS: DOCUSATE SODIUM 100 MG CAPSULE PO SCH (09:21)
[2019-03-26] MEDS: FERROUS SULFATE 325 MG TABLET PO SCH (09:21)
[2019-03-26] MEDS: OXYCODONE-ACETAMINOPHEN 5-325 MG TABLET PO PRN (09:29)
--- NOTE | 2019-03-26 10:09 | PDOC DISCHARGE SUMMARY ---
Impression - Admit/DC Date/PCP Admission Date/Primary Care Provider: 03/24/19 05:05 CONSTANCE FORTE MD Discharge Date: 03/26/19 - POD #2, pt states feeling better today, desires to go home. S/p 2 units PRBC yesterday. Hgb improved. pt denies blurred vision or SOB w/ ambulation this morning. A+ , rubella Immune. bottlefeeding - Discharge Diagnosis (1) GDM (gestational diabetes mellitus) Is this a current diagnosis for this admission?: Yes (2) hemorrhage Is this a current diagnosis for this admission?: Yes (3) S/P repeat low transverse Is this a current diagnosis for this admission?: Yes (4) Uterine atony, , current hospitalization Is this a current diagnosis for this admission?: Yes (5) Blood transfusion during current hospitalisation Is this a current diagnosis for this admission?: Yes - Additional Information Resuscitation Status: Full Code Discharge Diet: As Tolerated, Regular Discharge Activity: Activity As Tolerated Referrals: [facility] [Provider Group] Prescriptions: Ferrous Sulfate [Feosol 325 mg Tablet] 325 mg PO DAILY #30 tablet Ibuprofen [Motrin 800 mg Tablet] 800 mg PO Q6 #60 tablet Oxycodone HCl/Acetaminophen [Percocet 5-325 mg Tablet] 1 tab PO Q4HP PRN #30 tablet PRN Reason: Pain Scale Of 4 Home Medications: Prenat 115/Iron Fum/Folic/Dss [ 19 Tablet] 1 each PO DAILY 03/22/19 Ferrous Sulfate [Feosol 325 mg Tablet] 325 mg PO DAILY #30 tablet 03/26/19 Ibuprofen [Motrin 800 mg Tablet] 800 mg PO Q6 #60 tablet 03/26/19 Oxycodone HCl/Acetaminophen [Percocet 5-325 mg Tablet] 1 tab PO Q4HP PRN #30 tablet 03/26/19 HPI Reason(s) for Admission: Ceasarean Section-Repeat, Group B Strep Positive Procedures: Ultrasound Intrapartum Procedure(s): : Low Cervical, Transverse, Tubal Ligation Complication(s): Hemorrhage-Uterine Atony, Other - Rec'd 2 units PRBC Results Laboratory Results: WBC 6.4 10^3/uL (4.0-10.5) 03/26/19 07:44 RBC 3.07 10^6/uL (3.72-5.28) L 03/26/19 07:44 Hgb 9.4 g/dL (12.0-15.5) L 03/26/19 07:44 Hct 26.7 % (36.0-47.0) L 03/26/19 07:44 MCV 87 fl (80-97) 03/26/19 07:44 MCH 30.7 pg (27.0-33.4) 03/26/19 07:44 MCHC 35.2 g/dL (32.0-36.0) 03/26/19 07:44 RDW 15.3 % (11.5-14.0) H 03/26/19 07:44 Plt Count 147 10^3/uL (150-450) L 03/26/19 07:44 Lymph % (Auto) 25.6 % (13-45) 03/26/19 07:44 [place] % (Auto) 7.1 % (3-13) 03/26/19 07:44 Eos % (Auto) 1.8 % (0-6) 03/26/19 07:44 Baso % (Auto) 0.2 % (0-2) 03/26/19 07:44 Absolute Neuts (auto) 4.2 10^3/uL (1.7-8.2) 03/26/19 07:44 Absolute Lymphs (auto) 1.6 10^3/uL (0.5-4.7) 03/26/19 07:44 Absolute Monos (auto) 0.5 10^3/uL (0.1-1.4) 03/26/19 07:44 Absolute Eos (auto) 0.1 10^3/uL (0.0-0.6) 03/26/19 07:44 Absolute Basos (auto) 0.0 10^3/uL (0.0-0.2) 03/26/19 07:44 Seg Neutrophils % 65.3 % (42-78) 03/26/19 07:44 PT 12.5 SEC (11.4-15.4) 03/25/19 18:00 INR 0.94 03/25/19 18:00 APTT 30.5 SEC (23.5-35.8) 03/25/19 18:00 Sodium 134.8 mmol/L (137-145) L 03/25/19 18:00 Potassium 3.7 mmol/L (3.6-5.0) 03/25/19 18:00 Chloride 105 mmol/L (98-107) 03/25/19 18:00 Carbon Dioxide 22 mmol/L (22-30) 03/25/19 18:00 Anion Gap 8 (5-19) 03/25/19 18:00 BUN 9 mg/dL (7-20) 03/25/19 18:00 Creatinine 0.39 mg/dL (0.52-1.25) L 03/25/19 18:00 Est GFR ( Amer) > 60 (>60) 03/25/19 18:00 Est GFR (MDRD) Non-Af > 60 (>60) 03/25/19 18:00 Glucose 115 mg/dL (75-110) H 03/25/19 18:00 POC Glucose 92 mg/dL (70-110) 03/24/19 05:59 Calcium 8.2 mg/dL (8.4-10.2) L 03/25/19 18:00 Total Bilirubin 0.2 mg/dL (0.2-1.3) 03/25/19 18:00 Direct Bilirubin 0.2 mg/dL (0.0-0.4) 03/25/19 18:00 Neonat Total Bilirubin Not Reportable 03/25/19 18:00 Neonat Direct Bilirubin Not Reportable 03/25/19 18:00 Neonat Indirect Bili Not Reportable 03/25/19 18:00 AST 21 U/L (14-36) 03/25/19 18:00 ALT 12 U/L (<35) 03/25/19 18:00 Alkaline Phosphatase 120 U/L (38-126) 03/25/19 18:00 Total Protein 5.4 g/dL (6.3-8.2) L 03/25/19 18:00 Albumin 2.5 g/dL (3.5-5.0) L 03/25/19 18:00 Urine Color YELLOW 03/22/19 11:10 Urine Appearance SLIGHTLY-CLOUDY 03/22/19 11:10 Urine pH 6.0 (5.0-9.0) 03/22/19 11:10 Ur Specific Gays 1.006 03/22/19 11:10 Urine Protein NEGATIVE mg/dL (NEGATIVE) 03/22/19 11:10 Urine Glucose (UA) NEGATIVE mg/dL (NEGATIVE) 03/22/19 11:10 Urine Ketones 20 mg/dL (NEGATIVE) H 03/22/19 11:10 Urine Blood NEGATIVE (NEGATIVE) 03/22/19 11:10 Urine Nitrite NEGATIVE (NEGATIVE) 03/22/19 11:10 Urine Bilirubin NEGATIVE (NEGATIVE) 03/22/19 11:10 Urine Urobilinogen NEGATIVE mg/dL (<2.0) 03/22/19 11:10 Ur Leukocyte Esterase NEGATIVE (NEGATIVE) 03/22/19 11:10 Urine WBC (Auto) 2 /HPF 03/22/19 11:10 Urine RBC (Auto) 0 /HPF 03/22/19 11:10 U Hyaline Cast (Auto) 1 /LPF 03/22/19 11:10 Urine Bacteria (Auto) TRACE /HPF 03/22/19 11:10 Squamous Epi Cells Auto 8 /HPF 03/22/19 11:10 Urine Mucus (Auto) RARE /LPF 03/22/19 11:10 Urine Ascorbic Acid NEGATIVE (NEGATIVE) 03/22/19 11:10 Urine Opiates Screen NEGATIVE 03/22/19 11:10 Urine Methadone Screen NEGATIVE 03/22/19 11:10 Ur Barbiturates Screen NEGATIVE 03/22/19 11:10 Ur Phencyclidine Scrn NEGATIVE 03/22/19 11:10 Ur Amphetamines Screen NEGATIVE 03/22/19 11:10 U Benzodiazepines Scrn NEGATIVE 03/22/19 11:10 Urine Cocaine Screen NEGATIVE 03/22/19 11:10 U Marijuana (THC) Screen NEGATIVE 03/22/19 11:10 Blood Type A POSITIVE 03/25/19 18:59 Antibody Screen NEGATIVE 03/25/19 18:59 Crossmatch See Detail 03/25/19 18:59 Plan Health Concerns: iron rich foods encouraged Plan of Treatment: d/c to home, f/up with [facility] in 1 wk for incision check
[2019-03-26 11:13] VITALS: BP 126/84
== END 2019-03-26 12:15 | disposition home or self-care (01) | DRG 784 ==
LOC: 2S 05:05
PROVIDERS: ADMIT Obstetrics & Gynecology; ATTEND Obstetrics & Gynecology
PROC: 0UB70ZZ Excision of Bilateral Fallopian Tubes, Open Approach (ICD-10-PCS; 2019-03-24)
PROC: 10D00Z1 Extraction of Products of Conception, Low, Open Approach (ICD-10-PCS; principal; 2019-03-24 07:45)
PROC: 30233N1 Transfusion of Nonautologous Red Blood Cells into Peripheral Vein, Percutaneous Approach (ICD-10-PCS; 2019-03-25)
DX: O24.425 Gestational diabetes mellitus in childbirth, controlled by oral hypoglycemic drugs (principal); O72.1 Other immediate postpartum hemorrhage; D62 Acute posthemorrhagic anemia; O99.824 Streptococcus B carrier state complicating childbirth; O34.211 Maternal care for low transverse scar from previous cesarean delivery; Z87.891 Personal history of nicotine dependence; Z30.2 Encounter for sterilization; Z37.0 Single live birth; O99.02 Anemia complicating childbirth
CPT/HCPCS: 1961; 36415; 36430; 80053; 80307; 81001; 82962; 85025; 85027; 85610; 85730; 86850; 86900; 86901; 86920; 88302; J0131; J0690; J1100; J1885; J2250; J2270; J2370; J2405; J2590; J3010; J3490; J7060; J7120; P9016

== ENCOUNTER 2019-12-27 15:26 | Emergency (ER) | payer MEDICAID ==
[2019-12-27 15:34] VITALS: BP 173/104
[2019-12-27] MEDS ORDERED: DEXAMETHASONE SOD PHOSPHATE INJ 4 MG/1 ML VIAL IM ONE (17:15)
[2019-12-27] MEDS ORDERED: KETOROLAC TROMETHAMINE 60 MG/2 ML SDV IM ONE (17:15)
[2019-12-27] MEDS ORDERED: LIDOCAINE 5% (700 MG) TRANSDERMAL ADH..PATCH TP ONE (17:16)
--- NOTE | 2019-12-27 17:19 | ER Document Report ---
ED Extremity Problem, Lower - General Chief Complaint: Leg Pain Stated Complaint: RIGHT LEG PAIN Time Seen by Provider: 12/27/19 17:14 Primary Care Provider: YADY CABRERA DO [Primary Care Provider] - Follow up in 3-5 days Mode of Arrival: Ambulatory Information source: Patient Notes: 34-year-old female presents to ED for sciatica pain across the right buttocks down the right leg she states she has had this sciatica for about 3 years but is just worse today. We will treat her wit IM injection of Toradol and Decadron and treat her with a Lidoderm patch at this time. I will recommend use of ibuprofen on a regular basis and follow-up with a back specialist. She can also increase activity do back exercises ice packs warm packs. I will give her full written instructions on all of this. Constitutional: Negative for fever. HENT: Negative for sore throat. Eyes: Negative for visual changes. Cardiovascular: Negative for chest pain. Respiratory: Negative for shortness of breath. Gastrointestinal: Negative for abdominal pain, vomiting or diarrhea. Genitourinary: Negative for dysuria. Musculoskeletal: Pain tenderness across the right buttocks down the right leg Skin: Negative for rash. Neurological: Negative for headaches, weakness or numbness. 10 point ROS negative except as marked above and in HPI. VITAL SIGNS: Within normal limits. GENERAL: No acute distress, non-toxic appearance. HEAD: Normal with no signs of head trauma. EYES: PERRLA, EOMI, conjunctiva normal, no discharge. EARS: Hearing grossly intact. NOSE: Normal. THROAT: Oropharynx is normal. NECK: Normal range of motion, no tenderness, supple, no lymphadenopathy, No adenopathy, no JVD. CHEST: Clear breath sounds bilaterally. No wheezes, rales, or rhonchi. CARDIAC: Regular rate and rhythm. S1 and S2, without murmurs, gallops, or rubs. VASCULAR: No Edema. Peripheral pulses normal and equal in all extremities. ABDOMEN: Normal and soft with no tenderness, no masses or pulsatile masses. GASTROINTESTINAL: Bowel sounds normal GENITOURINARY: Normal, No tenderness LYMPATHTIC: No lymphadenopathy noted. MUSCULOSKELETAL: Pain across the right buttocks down the right leg. NEUROLOGICAL: Alert and oriented x 3. No focal sensory or strength deficits. Speech normal. Follows commands appropriately. PSYCHIATRIC: Normal Affect, judgement and mood. SKIN: Normal appearance with no rashes or lesions. TRAVEL OUTSIDE OF THE [place] IN LAST 30 DAYS: No - HPI Patient complains to provider of: Pain Location: Back, Buttock, Thigh Occurred: Other - Chronic Onset/Duration: Gradual - Chronic sciatic pain, Worse Quality of pain: Burning, Sharp Severity: Moderate Pain Level: 3 Context: Other - No new injuries chronic pain just worse Recent injury: No Associated symptoms: Other - Chronic back pain with sciatica Exacerbated by: Hanging down, Movement, Walking Relieved by: Nothing - Related Data Allergies/Adverse Reactions: No Known Allergies Allergy (Verified 12/27/19 17:18) Past Medical History - General Information source: Patient - Social History Smoking Status: Never Smoker Frequency of alcohol use: Occasional Drug Abuse: None Lives with: Alone - For kids Family History: Reviewed & Not Pertinent Patient has suicidal ideation: No Patient has homicidal ideation: No - Past Medical History Cardiac Medical History: Reports: None Pulmonary Medical History: Reports: None EENT Medical History: Reports: None Neurological Medical History: Reports: None Endocrine Medical History: Reports: None Renal/ Medical History: Reports: None Malignancy Medical History: Reports: None GI Medical History: Reports: None Musculoskeletal Medical History: Reports Hx Musculoskeletal Deformity - Sciatica Skin Medical History: Reports None Psychiatric Medical History: Reports: Hx Depression - 3rd Traumatic Medical History: Reports: None Infectious Medical History: Reports: None Past Surgical History: Reports: Hx Section - X2 - Immunizations Hx Diphtheria, Pertussis, Tetanus Vaccination: Yes - 2012 Physical Exam - Vital signs Vitals: Temp Pulse Resp BP Pulse Ox 98.2 F 77 20 173/104 H 96 12/27/19 15:32 12/27/19 15:32 12/27/19 15:32 12/27/19 15:32 12/27/19 15:32 Course - Vital Signs Vital signs: Temp Pulse Resp BP Pulse Ox 98.2 F 77 20 173/104 H 96 12/27/19 15:32 12/27/19 15:32 12/27/19 15:32 12/27/19 15:32 12/27/19 15:32 Discharge - Discharge Clinical Impression: Chronic low back pain with right-sided sciatica Qualifiers: Back pain laterality: right Qualified Code(s): M54.41 - Lumbago with sciatica, right side Condition: Stable Disposition: HOME, SELF-CARE Additional Instructions: Chronic Back Pain Chronic back pain (pain persisting longer than three months) is a common problem. A medical evaluation can look for herniated disc, arthritis, osteoporosis, tumors, and infections. But at least half the time, there's no obvious treatable cause. Anxiety and depression tend to worsen back pain. Ibuprofen or other anti-inflammatory medicine can help. A heating pad, used for 15-20 minutes at a time, can ease pain. For this type of back pain, narcotic medicines should be avoided. Muscle relaxers are rarely helpful unless you're having spasms. Activity is important. Find an aerobic exercise program that your back can tolerate. Too much rest makes back pain worse. Specific back exercises are usually prescribed to strengthen the back and abdominal muscles. Often, a physical therapist can help. Avoid heavy lifting, working while bent over, or standing with both knees straight. Most back pain patients do better with a firm mattress. If new symptoms of a "herniated disc" (radiation of pain, numbness, or tingling down the back of the leg or weakness in the leg) occur, you should be re-examined. ICE PACKS: Apply ice packs frequently against the painful area. Many different schedules are recommended, such as "20 minutes on, 20 minutes off" or "one hour ice, two hours rest." If you need to work, you may need to go longer between ice treatments. You should plan to have the area ice packed AT LEAST one fourth of the time. The ice should be applied over the wrap, tape, or splint, or over a layer of cloth -- not directly against the skin. Some ice bags have a built-in cloth and can be put directly on the skin. WARM PACKS: After approximately two days, apply gentle heat (such as a heating pad or hot water bottle) for about 20 to 30 minutes about every two hours -- at least four times daily. Warmth and elevation will help you make a more rapid recovery, and will ease the pain considerably. Do not use HOT heat, and never apply heat for longer than 30 minutes. The continuous heat can invisibly damage skin and muscles -- even when no burn is seen on the surface. Damaged muscles can make you MORE sore. STEROID MEDICATION: You have been given an injection of medicine of the cortisone/steroid class. This medication is used to control inflammation or allergy. It is often continued as a pill for a short period of time, until the acute process subsides. There are usually no side effects from short-term use of cortisone-like medications. Some persons feel an increased sense of well-being and are not sleepy at bedtime. Long-term use of cortisone medications is best avoided, unless required for a severe condition. If your condition does not remit, or relapses after the course of corticosteroid medication, you should consult your physician. Toradol Injection You have been given an injection of ketorolac tromethamine (Toradol). This is an excellent, safe drug for pain control. It also has potent antiinflammatory action. You should have significant pain relief within about one hour. Toradol is not addicting and is non-sedating. It does not interfere with driving or work. Call or return if you develop itching, hives, shortness of breath, or rash. Stretching Exercises for the Back The physician has recommended that you begin stretching exercises for your back. These are often used even while the back is painful. However, you should notify the physician if the activities seem to increase your pain. PELVIC TILT: Lie flat on your back with knees bent. Tighten your stomach and buttock muscles so it flattens your lower back against the floor. Hold 10 seconds. Repeat 10 times, twice daily. KNEE RAISE: Lying on the back with knees bent, raise one knee to your chest, then the other. Hold both knees against the chest 10 seconds, then lower one knee at a time. Repeat 10 times, twice daily. PARTIAL TRUNK RAISE: Lie face down, arms at your sides. Keeping your waist on the floor, use your arms raise your chest up. Support yourself on your elbows for 30 seconds. Repeat twice daily, increasing the time to two minutes as you recover. Been given a Lidoderm patch. This can stay on for 12 hours then it needs to be removed. You can get [id number] patches that are almost as good as this patch. You will need to leave them on 12 hours and then take them off and leave them off for 12 hours also. Please be sure to take the splint off after 12 hours. FOLLOW-UP CARE: If you have been referred to a physician for follow-up care, call the physicians office for an appointment as you were instructed or within the next two days. If you experience worsening or a significant change in your symptoms, notify the physician immediately or return to the Emergency Department at any time for re-evaluation. Forms: Elevated Blood Pressure, Return to Work Referrals: YADY CABRERA DO [Primary Care Provider] - Follow up in 3-5 days
== END 2019-12-27 17:37 | disposition home or self-care (01) ==
LOC: ER 15:26
DX: M54.41 Lumbago with sciatica, right side (principal); M79.604 Pain in right leg
CPT/HCPCS: 99284; 96372; J1100; J1885; J3490

== ENCOUNTER → 2020-01-08 | Outpatient (CLI) | payer MEDICAID ==
--- NOTE | 2020-01-08 15:35 | RADIOLOGY REPORT (SQ) ---
EXAM DESCRIPTION: L SPINE WHOLE IMAGES COMPLETED DATE/TIME: 01/08/2020 3:22 pm REASON FOR STUDY: M54.16 RADICULOPATHY, LUMBAR REGION M54.16 RADICULOPATHY, LUMBAR REGION COMPARISON: None. NUMBER OF VIEWS: Five views including obliques. TECHNIQUE: AP, lateral, oblique, and sacral radiographic images acquired of the lumbar spine. LIMITATIONS: None. FINDINGS: MINERALIZATION: Normal. SEGMENTATION: Normal. No transitional anatomy. ALIGNMENT: Normal. VERTEBRAE: Maintained height. No fracture or worrisome bone lesion. DISCS: Preserved height. No significant osteophytes or end plate irregularity. POSTERIOR ELEMENTS: Pedicles and facets are intact. No pars defect or posterior arch defects. HARDWARE: None in the spine. PARASPINAL SOFT TISSUES: Normal. PELVIS: Intact as visualized. No fractures or worrisome bone lesions. SI joints intact. OTHER: No other significant finding. IMPRESSION: NORMAL 5 VIEW LUMBAR SPINE. TECHNICAL DOCUMENTATION: JOB ID: [id number] [employer]- All Rights Reserved Reading location - IP/workstation name: [email or web address]
== END ==
LOC: RAD 14:51
PROVIDERS: ATTEND Family Medicine
DX: M54.16 Radiculopathy, lumbar region (principal)
CPT/HCPCS: 72110